=== PATIENT | female | born 1960 ===

== ENCOUNTER → 2019-08-28 | Day surgery (SDC) | payer OTHER | END | disposition home or self-care (01) | LOC: ADM 08-12 11:30 → CIR.AMB 05:13 | PROVIDERS: Specialist | PROC: 0J080ZZ Alteration of Abdomen Subcutaneous Tissue and Fascia, Open Approach (ICD-10-PCS; principal; 2019-08-28 07:00) | DX: E65 Localized adiposity (principal) ==